=== PATIENT | male | born 1935 | race Caucasian/White ===

== ENCOUNTER 2017-05-15 10:08 | Inpatient (IN) | payer OTHER, MEDICARE ==
[2017-05-15] VITALS (9 sets, daily range): BP systolic 148–188; BP diastolic 67–86; PULSE 86–97; RESP 15–18; TEMP 97–98.2; O2SAT 93–99
[~2017-05-15] VITALS: Ht 185.4 cm; Wt 86.0 kg
[2017-05-15] MEDS ORDERED: AMLO5 PO (10:26)
[2017-05-15] MEDS ORDERED: METF1000 PO (10:26)
[2017-05-15] MEDS ORDERED: MAGN400T2 PO (10:26)
[2017-05-15] MEDS ORDERED: NOVONP2 SQ (10:26)
[2017-05-15] MEDS ORDERED: LISI20TA3 PO (10:26)
[2017-05-15] MEDS ORDERED: PRIM50TA5 PO (10:27)
[2017-05-15] MEDS ORDERED: TERA5CAP3 PO (10:27)
[2017-05-15] MEDS ORDERED: ASPI-516 PO (10:27)
[2017-05-15] MEDS ORDERED: VITA2000 PO (10:27)
[2017-05-15] MEDS ORDERED: VITA10002 PO (10:27)
[2017-05-15] MEDS ORDERED: CENTCHW4 PO (10:27)
[2017-05-15] MEDS ORDERED: GABA100C4 PO (10:27)
[2017-05-15] MEDS ORDERED: ZOCO40TA PO (10:27)
[2017-05-15] MEDS ORDERED: SODIUM CHLORIDE 0.9% FLUSH 10 ML FLUSH IVF PRN (10:30)
--- NOTE | 2017-05-15 10:34 | PD ---
HPI Chief Complaint: Neuro Symptoms/ Deficits Time Seen by Provider: 10:20 Travel History International Travel<30 days: No Contact w/Intl Traveler<30days: No Traveled to known affect area: No History of Present Illness HPI This patient woke up this morning with slurred speech. He was drooling out of the right side of his mouth. He denies confusion. He does not have muscle weakness or sensory loss. No prior history of CVA or TIA. He does take a daily baby aspirin. When he went to bed he was feeling fine. Symptoms severity is moderate. Duration is unknown as it occurred during sleep. No alleviating factors. No exacerbating factors. PFSH Past Medical History Cardiovascular Problems: Yes High Cholesterol: Yes Diabetes: Yes Patient Takes Glucophage: Yes Diminished Hearing: No Hypertension: Yes Medical other: Yes Tetanus Vaccination: > 5 Years Influenza Vaccination: Yes Past Surgical History Eye Surgery: Yes (cataracts) Other Surgery: Yes (tumors removed of mouth) Social History Alcohol Use: Yes (1 shot whiskey every day) Tobacco Use: No (quit 25 years ago) Substance Use: No Allergies-Medications (Allergen,Severity, Reaction): Coded Allergies: No Known Allergies (Verified Allergy, Unknown, 05/15/17) Reported Meds & Prescriptions Reported Meds & Active Scripts Active Reported Vitamin D3 (Cholecalciferol) 2,000 Unit Cap 2,000 Units PO DAILY Vitamin B-12 (Cyanocobalamin) 1,000 Mcg Tab 1,000 Mcg PO DAILY Centrum (Multiple Vitamins W/ Minerals) 1 Chew 1 Tab PO DAILY Aspirin 81 Mg Chew 81 Mg PO DAILY Gabapentin 100 Mg Cap 200 Mg PO HS Primidone 50 Mg Tab 50 Mg PO BID Zocor (Simvastatin) 40 Mg Tab 40 Mg PO DAILY Terazosin (Terazosin HCl) 5 Mg Cap 5 Mg PO HS Metformin (Metformin HCl) 1,000 Mg Tab 1,000 Mg PO BIDPC Norvasc (Amlodipine Besylate) 5 Mg Tab 5 Mg PO DAILY Magnesium Oxide 400 Mg Tab 400 Mg PO DAILY Novolin N Inj (Insulin Human NPH) 1,000 Unit/10 Ml Vial 20 Units SQ BID Lisinopril-Hctz 20-25 Mg Tab 1 Tab PO DAILY Review of Systems General / Constitutional: No: Fever Eyes: No: Visual changes HENT: No: Headaches Cardiovascular: No: Chest Pain or Discomfort Respiratory: No: Shortness of Breath Gastrointestinal: No: Abdominal Pain Genitourinary: No: Dysuria Musculoskeletal: No: Pain Skin: No Rash Neurologic: Positive: Slurred Speech, No: Weakness Psychiatric: No: Depression Endocrine: No: Polydipsia Hematologic/Lymphatic: No: Easy Bruising Physical Exam Narrative GENERAL: Well-nourished, well-developed patient in no apparent distress. SKIN: Focused skin assessment reveals no rash and nodules. Skin is Warm and dry. HEAD: Atraumatic. Normocephalic. EYES: Pupils equal and round. No scleral icterus. No injection or drainage. ENT: No nasal bleeding or discharge. Mucous membranes pink and moist. NECK: Trachea midline. No JVD. CARDIOVASCULAR: Regular rate and rhythm. No murmur appreciated. RESPIRATORY: No accessory muscle use. Clear to auscultation. Breath sounds equal bilaterally. GASTROINTESTINAL: Abdomen soft, non-tender, nondistended. Hepatic and splenic margins not palpable. MUSCULOSKELETAL: No obvious deformities. No clubbing. No cyanosis. No edema. NEUROLOGICAL: Awake and alert. No obvious cranial nerve deficits. Motor grossly within normal limits. Has some slurring of speech. No aphasia. He has a subtle right sided facial droop. Sensation intact PSYCHIATRIC: Appropriate mood and affect; insight and judgment normal. Data Data Last Documented VS Vital Signs Date Time Temp Pulse Resp B/P (MAP) Pulse Ox O2 Delivery O2 Flow Rate FiO2 05/15/17 12:07 98 Room Air 05/15/17 11:32 97.8 87 15 168/78 (108) Orders Orders Electrocardiogram (05/15/17 10:28) Prothrombin Time / Inr (Pt) (05/15/17 10:28) Act Partial Throm Time (Ptt) (05/15/17 10:28) Complete Blood Count With Diff (05/15/17 10:28) Basic Metabolic Panel (Bmp) (05/15/17 10:28) Ct Brain W/O Iv Contrast(Rout) (05/15/17 10:28) Ecg Monitoring (05/15/17 10:28) Iv Access Insert/Monitor (05/15/17 10:28) Oximetry (05/15/17 10:28) Blood Glucose (05/15/17 10:28) Sodium Chloride 0.9% Flush (Ns Flush) (05/15/17 10:30) Admit To Inpatient (05/15/17 ) Vital Signs (Adult) Q4H (05/15/17 11:51) Nih Stroke Scale - Nihss .On admission and discharge (05/15/17 11:51) Neuro Checks Q4H (05/15/17 11:51) Consult Pt Eval & Treat (05/15/17 11:51) Case Management Consult (05/15/17 ) Activity Bed Rest (05/15/17 11:51) Nursing Bedside Swallow Assess .ONCE (05/15/17 11:51) Scd Bilateral/Knee High ANN.QSHIFT (05/15/17 11:51) Diet Npo (05/15/17 Lunch) Hemoglobin (Hgb) A1c (05/15/17 11:51) Lipid Profile (05/16/17 06:00) Us Carotid Arteries Comp Bilat (05/15/17 ) Holter Monitor Recording (05/15/17 ) Mra Brain W/O Contrast (Cow) (05/15/17 ) Mri Brain W/O Contrast (05/15/17 ) Echo 2d Comp With Doppler (05/15/17 ) Resp Oxygen Nc Stroke (05/15/17 ) ^ Hold Medication (05/15/17 11:51) Consult Neurology (05/15/17 ) Sodium Chloride 0.9% Flush (Ns Flush) (05/15/17 21:00) Sodium Chloride 0.9% Flush (Ns Flush) (05/15/17 12:00) Sodium Chlor 0.9% 1000 Ml Inj (Ns 1000 M (05/15/17 11:51) Enalaprilat Inj (Vasotec Inj) (05/15/17 12:00) Aspirin (Aspirin) (05/16/17 09:00) Bedside Glucose ANN.CSUGAR (05/15/17 11:51) Insulin Aspart Supplemtl Scale (Novolog (05/15/17 12:00) Dextrose 50% In Jayesh (Vial) Inj (D50w (Vi (05/15/17 12:00) Glucagon Inj (Glucagon Inj) (05/15/17 12:00) Consult Rehab Medicine (05/15/17 11:51) Cryptologic Technician Operator/Analyst / Telemetry ANN.Q8H (05/15/17 11:51) Consult Stroke Navigator (05/15/17 ) Heparin Inj (Heparin Inj) (05/15/17 12:00) Inpatient Certification (05/15/17 ) (Hub Use Only)Inp Phy Cons/Ref (05/15/17 ) (Hub Use Only)Inp Phy Cons/Ref (05/15/17 ) Admit Order (Ed Use Only) (05/15/17 12:22) Labs Laboratory Tests Test 05/15/17 10:30 White Blood Count 8.4 TH/MM3 Red Blood Count 3.78 MIL/MM3 Hemoglobin 11.9 GM/DL Hematocrit 34.5 % Mean Corpuscular Volume 91.2 FL Mean Corpuscular Hemoglobin 31.5 PG Mean Corpuscular Hemoglobin Concent 34.5 % Red Cell Distribution Width 13.0 % Platelet Count 245 TH/MM3 Mean Platelet Volume 8.1 FL Neutrophils (%) (Auto) 60.0 % Lymphocytes (%) (Auto) 27.9 % Monocytes (%) (Auto) 7.9 % Eosinophils (%) (Auto) 3.6 % Basophils (%) (Auto) 0.6 % Neutrophils # (Auto) 5.0 TH/MM3 Lymphocytes # (Auto) 2.3 TH/MM3 Monocytes # (Auto) 0.7 TH/MM3 Eosinophils # (Auto) 0.3 TH/MM3 Basophils # (Auto) 0.1 TH/MM3 CBC Comment DIFF FINAL Differential Comment Prothrombin Time 10.2 SEC Prothromb Time International Ratio 1.0 RATIO Activated Partial Thromboplast Time 23.1 SEC Blood Urea Nitrogen 19 MG/DL Creatinine 1.14 MG/DL Random Glucose 181 MG/DL Calcium Level 9.1 MG/DL Sodium Level 135 MEQ/L Potassium Level 4.2 MEQ/L Chloride Level 99 MEQ/L Carbon Dioxide Level 27.1 MEQ/L Anion Gap 9 MEQ/L Estimat Glomerular Filtration Rate 62 ML/MIN MDM Medical Decision Making Medical Screen Exam Complete: Yes Emergency Medical Condition: Yes Medical Record Reviewed: Yes Differential Diagnosis Ischemic CVA, hemorrhagic CVA, TIA Narrative Course I have reviewed the patient's electronic medical record. 10:30: I evaluated the patient. I've ordered a CVA workup He does not meet stroke alert or TPA criteria, he is well out of the window for TPA 1140: Labs reviewed and essentially normal Noon: Brain CT shows small vessel ischemic change without hemorrhage 1220: I reviewed with hospitalist will admit for acute ischemic CVA workup Diagnosis Primary Impression: Neurologic deficit due to acute ischemic cerebrovascular accident (CVA) Admitting Information Admitting Physician Requests: Admit Salbador Mcgee MD May 15, 2017 10:34
[2017-05-15 11:01] LABS: BASOPHIL # 0.1 TH/MM3 (0-0.2); BASOPHIL % 0.6 % (0.0-2.0); EOSINOPHIL # 0.3 TH/MM3 (0-0.4); EOSINOPHIL % 3.6 % (0.0-4.0); HEMATOCRIT 34.5 % (39.0-51.0); HEMOGLOBIN 11.9 GM/DL (13.0-17.0); LYMPH % 27.9 % (9.0-44.0); LYMPHOCYTE # 2.3 TH/MM3 (1.0-4.8); MEAN CELL VOLUME 91.2 FL (80.0-100.0); MEAN CORPUSCULAR HEMOGLOBIN 31.5 PG (27.0-34.0); MEAN CORPUSCULAR HGB CONC 34.5 % (32.0-36.0); MEAN PLATELET VOLUME 8.1 FL (7.0-11.0); MONO % 7.9 % (0.0-8.0); MONOCYTE # 0.7 TH/MM3 (0-0.9); PLATELET COUNT 245 TH/MM3 (150-450); RED BLOOD COUNT 3.78 MIL/MM3 (4.50-5.90); WHITE BLOOD COUNT 8.4 TH/MM3 (4.0-11.0)
[2017-05-15 11:08] LABS: PROTHROMBIN TIME - PATIENT 10.2 SEC (9.8-11.6)
[2017-05-15 11:12] LABS: BICARBONATE 27.1 MEQ/L (21.0-32.0); CALCIUM 9.1 MG/DL (8.5-10.1); CREATININE 1.14 MG/DL (0.60-1.30)
--- NOTE | 2017-05-15 11:14 | RADRPT ---
EXAM DATE/TIME: 05/15/2017 10:59 [facility] COMPARISON: No previous studies available for comparison. INDICATIONS : Slurred speech and difficulty speaking since 5 am. RADIATION DOSE: 37.64 CTDIvol (mGy) MEDICAL HISTORY : Cardiovascular disease. Hypertension. Diabetes mellitus type 2. SURGICAL HISTORY : None. ENCOUNTER: Initial ACUITY: 1 day PAIN SCALE: 0/10 LOCATION: cranial TECHNIQUE: Multiple contiguous axial images were obtained of the head. Using automated exposure control and adj ustment of the mA and/or kV according to patient size, radiation dose was kept as low as reasonably a chievable to obtain optimal diagnostic quality images. DICOM format image data is available electro nically for review and comparison. FINDINGS: CEREBRUM: [id number] diffuse cerebral atrophy. The ventricles are normal for degree of atrophy. Mild per iventricular white matter hypodensities consistent with ischemic white matter demyelination. No evide nce of midline shift, mass lesion, hemorrhage or acute infarction. No extra-axial fluid collections are seen. POSTERIOR FOSSA: The cerebellum and brainstem are intact. The 4th ventricle is midline. The cerebellopontine angle i s unremarkable. EXTRACRANIAL: The visualized portion of the orbits is intact. SKULL: The calvaria is intact. No evidence of skull fracture. CONCLUSION: 1. Senescent changes with mild small vessel ischemic white matter demyelination. 2. No acute intracranial abnormality. Ben Conley MD on May 15, 2017 at 11:10 Board Certified Radiologist. This report was verified electronically.
[2017-05-15] MEDS ORDERED: SODIUM CHLORIDE 0.9% FLUSH 10 ML FLUSH IV FLUSH PRN (12:00)
[2017-05-15] MEDS ORDERED: ENALAPRILAT 1.25 MG/ML VIAL IV PUSH PRN (12:00)
[2017-05-15] MEDS ORDERED: GLUCAGON 1 MG/ML VIAL OTHER PRN (12:00)
[2017-05-15] MEDS: INSULIN ASPART SUPPLEMENTAL SCALE SQ SCH ×3 (12:00→21:42)
[2017-05-15] MEDS ORDERED: DEXTROSE 50% IN WATER 50 ML VIAL(D50) IV PUSH PRN (12:00)
[2017-05-15] MEDS: SODIUM CHLOR 0.9% 1000 ML INJ 1,000 ML IV SCH (13:27)
[2017-05-15] MEDS: HEPARIN SODIUM - SQ 10,000 UNITS/ML VIAL SQ SCH (13:27)
--- NOTE | 2017-05-15 13:53 | HHI.HP ---
HPI Service [facility] Hospitalists Primary Care Physician Robert Garcia MD Admission Diagnosis acute ischemic CVA Diagnoses: Chief Complaint: Slurred speech Travel History International Travel<30 Days: No Contact w/Intl Traveler <30 Da: No Traveled to Known Affected Are: No History of Present Illness Written by Salena Stone, acting as scribe for Dr. Amezcua on 05/15/17 at 13: 46. This is an 81yo male patient with a PMHX of hypertension, diabetes, neuropathy and dyslipidemia who presents to [facility] ED with complaints of slurred speech and drooling out the right side of his mouth. Patient reports waking up around 5am with slurred speech. He denies any weakness. He denies any fever, chills, nausea, vomiting, chest pain or shortness of breath. He denies any previous TIA/CVA. He takes a baby aspirin daily. He has one shot of whisky every afternoon. He denies any previous history of withdrawals or seizures. He reports involuntary shaking for the past year. He has an upcoming appointment with Dr. Mark. Currently, he reports a "slight" headache in the back which is not new and occurs rather frequently. He endorses intermittent diarrhea but not recently. He states his speech is improving. In the ED, CT of the head showed small vessel ischemic changes without any evidence of hemorrhage. Review of Systems Except as stated in HPI: all other systems reviewed are Neg Past Family Social History Past Medical History Hypertension DM Dyslipidemia Neuropathy Skin cancer Past Surgical History Right shoulder surgery Cataract surgery Reported Medications Vitamin D3 (Cholecalciferol) 2,000 Unit Cap 2,000 Units PO DAILY Vitamin B-12 (Cyanocobalamin) 1,000 Mcg Tab 1,000 Mcg PO DAILY Centrum (Multiple Vitamins W/ Minerals) 1 Chew 1 Tab PO DAILY Aspirin 81 Mg Chew 81 Mg PO DAILY Gabapentin 100 Mg Cap 200 Mg PO HS Primidone 50 Mg Tab 50 Mg PO BID Zocor (Simvastatin) 40 Mg Tab 40 Mg PO DAILY Terazosin (Terazosin HCl) 5 Mg Cap 5 Mg PO HS Metformin (Metformin HCl) 1,000 Mg Tab 1,000 Mg PO BIDPC Norvasc (Amlodipine Besylate) 5 Mg Tab 5 Mg PO DAILY Magnesium Oxide 400 Mg Tab 400 Mg PO DAILY Novolin N Inj (Insulin Human NPH) 1,000 Unit/10 Ml Vial 20 Units SQ BID Lisinopril-Hctz 20-25 Mg Tab 1 Tab PO DAILY Allergies: Coded Allergies: No Known Allergies (Verified Allergy, Unknown, 05/15/17) Active Ordered Medications Current Medications Medications (Trade) Dose Ordered Sig/Colton Route Start Time Stop Time Status Last Admin (NS Flush) 2 ml BID IV FLUSH 05/15/17 21:00 (NS Flush) 2 ml UNSCH PRN IV FLUSH 05/15/17 12:00 Sodium Chloride 1,000 ml @ 70 mls/hr [id number] IV 05/15/17 11:51 05/15/17 13:27 (Vasotec Inj) 1.25 mg Q4H PRN IV PUSH 05/15/17 12:00 (Aspirin) 325 mg DAILY PO 05/16/17 09:00 (NovoLOG SUPPLEMENTAL SCALE) 1 ACHS SQ 05/15/17 12:00 (D50w (Vial) Inj) 50 ml UNSCH PRN IV PUSH 05/15/17 12:00 (Glucagon Inj) 1 mg UNSCH PRN OTHER 05/15/17 12:00 (Heparin Inj) 5,000 units Q12H SQ 05/15/17 12:00 05/15/17 13:27 Family History Father, enlarged heart Mother, age 87, old age Social History He has a remote history of tobacco use having quit 25yrs ago. He drinks a shot of whiskey daily. He denies any illicit drug use. Physical Exam Vital Signs Vital Signs Date Time Temp Pulse Resp B/P (MAP) Pulse Ox O2 Delivery O2 Flow Rate FiO2 05/15/17 13:28 97.7 89 16 158/81 (106) 96 Room Air 05/15/17 12:07 98 Room Air 05/15/17 11:32 97.8 87 15 168/78 (108) 96 Room Air 05/15/17 10:29 16 97 Room Air 05/15/17 10:21 89 16 97 Room Air 05/15/17 10:10 98.2 97 18 188/86 (120) 96 Room Air Physical Exam GENERAL: This is a well-nourished, well-developed elderly male patient , in no apparent distress. Awake and alert. Bilateral upper extremity tremors L>R. SKIN: No rashes, ecchymoses or lesions. Cool and dry. HEAD: Atraumatic. Normocephalic. No temporal or scalp tenderness. EYES: Pupils equal round and reactive. Extraocular motions intact. No scleral icterus. No injection or drainage. ENT: Nose without bleeding or purulent drainage. Throat without erythema, tonsillar hypertrophy or exudate. Uvula midline. Airway patent. NECK: Trachea midline. No JVD or lymphadenopathy. Supple, nontender, no meningeal signs. CARDIOVASCULAR: Regular rate and rhythm without murmurs, gallops, or rubs. RESPIRATORY: Clear to auscultation. Breath sounds equal bilaterally. No wheezes , rales, or rhonchi. GASTROINTESTINAL: Abdomen soft, non-tender, nondistended. No hepato-splenomegaly , or palpable masses. No guarding. MUSCULOSKELETAL: Extremities without clubbing, cyanosis, or edema. No joint tenderness, effusion, or edema noted. No calf tenderness. NEUROLOGICAL: Awake and alert. Cranial nerves II through XII grossly intact. Motor and sensory grossly within normal limits. Five out of 5 muscle strength in all muscle groups. Normal speech. Laboratory Laboratory Tests Test 05/15/17 10:30 White Blood Count 8.4 Red Blood Count 3.78 Hemoglobin 11.9 Hematocrit 34.5 Mean Corpuscular Volume 91.2 Mean Corpuscular Hemoglobin 31.5 Mean Corpuscular Hemoglobin Concent 34.5 Red Cell Distribution Width 13.0 Platelet Count 245 Mean Platelet Volume 8.1 Neutrophils (%) (Auto) 60.0 Lymphocytes (%) (Auto) 27.9 Monocytes (%) (Auto) 7.9 Eosinophils (%) (Auto) 3.6 Basophils (%) (Auto) 0.6 Neutrophils # (Auto) 5.0 Lymphocytes # (Auto) 2.3 Monocytes # (Auto) 0.7 Eosinophils # (Auto) 0.3 Basophils # (Auto) 0.1 CBC Comment DIFF FINAL Differential Comment Prothrombin Time 10.2 Prothromb Time International Ratio 1.0 Activated Partial Thromboplast Time 23.1 Blood Urea Nitrogen 19 Creatinine 1.14 Random Glucose 181 Calcium Level 9.1 Sodium Level 135 Potassium Level 4.2 Chloride Level 99 Carbon Dioxide Level 27.1 Anion Gap 9 Estimat Glomerular Filtration Rate 62 Result Diagram: 05/15/17 1030 05/15/17 1030 Imaging Last Impressions Head CT 05/15/17 1028 Signed Impressions: Service Date/Time: Monday, May 15, 2017 10:59 - CONCLUSION: 1. Senescent changes with mild small vessel ischemic white matter demyelination. 2. No acute intracranial abnormality. MD Gary Nava VTE Risk Assessment Capriniram VTE Risk Assessment: Mod/High Risk (score >= 2) Caprini Risk Assessment Model Point Value = 1 Point Value = 2 Point Value = 3 Point Value = 5 Age 41-60 Minor surgery BMI > 25 kg/m2 Swollen legs Varicose veins or History of unexplained or recurrent spontaneous Oral contraceptives or hormone replacement Sepsis (< 1 month) Serious lung disease, including pneumonia (< 1 month) Abnormal pulmonary function Acute myocardial infarction Congestive heart failure (< 1 month) History of inflammatory bowel disease Medical patient at bed rest Age 61-74 Arthroscopic surgery Major open surgery (> 45 min) Laparoscopic surgery (> 45 min) Malignancy Confined to bed (> 72 hours) Immobilizing plaster cast Central venous access Age >= 75 History of VTE Family history of VTE Factor V Leiden Prothrombin [id number] Lupus anticoagulant Anticardiolipin antibodies Elevated serum homocysteine Heparin-induced thrombocytopenia Other congenital or acquired thrombophilia Stroke (< 1 month) Elective arthroplasty Hip, pelvis, or leg fracture Acute spinal cord injury (< 1 month) Prophylaxis Regimen Total Risk Factor Score Risk Level Prophylaxis Regimen 0-1 Low Early ambulation 2 Moderate Order ONE of the following: *Sequential Compression Device (SCD) *Heparin 5000 units SQ BID 3-4 Higher Order ONE of the following medications: *Heparin 5000 units SQ TID *Enoxaparin/Lovenox 40 mg SQ daily (WT < 150 kg, CrCl > 30 mL/min) *Enoxaparin/Lovenox 30 mg SQ daily (WT < 150 kg, CrCl > 10-29 mL/min) *Enoxaparin/Lovenox 30 mg SQ BID (WT < 150 kg, CrCl > 30 mL/min) AND/OR *Sequential Compression Device (SCD) 5 or more Highest Order ONE of the following medications: *Heparin 5000 units SQ TID (Preferred with Epidurals) *Enoxaparin/Lovenox 40 mg SQ daily (WT < 150 kg, CrCl > 30 mL/min) *Enoxaparin/Lovenox 30 mg SQ daily (WT < 150 kg, CrCl > 10-29 mL/min) *Enoxaparin/Lovenox 30 mg SQ BID (WT < 150 kg, CrCl > 30 mL/min) AND *Sequential Compression Device (SCD) Assessment and Plan Assessment and Plan 81yo male patient with a PMHX of hypertension, diabetes, neuropathy and dyslipidemia who presents to [facility] ED with complaints of slurred speech and drooling out the right side of his mouth. //TIA/CVA CT head shows no acute intracranial process, images reviewed by me Consult Neurology, appreciate assistance Consult stroke navigator Neuro checks q4h Consult PT/OT/ST NPO for now. Bedside swallow evaluation ordered ASA 325mg and statin daily follow blood sugars Obtain HgbA1c, lipid profile Obtain Carotid US, MRI/MRA Brain, 2D echocardiogram Holter monitor HOB flat IVF continuous cardiac monitoring Consult Rehab medicine fall and seizure precautions //Hypertension Allow permissive HTN for now Vasotec 1.25mg IV q4h prn BP > 220/120 //Diabetes Hold home Metformin for now Accucheck and ISS obtain HgbA1c //DVT prophylaxis - Heparin sq Discussed Condition With ED physician, patient This note was transcribed by jocelyn Stone. I, Dr. Bernard Amezcua personally performed the history, physical exam, and medical decision making; and confirmed the accuracy of the information in the transcribed note. Authenticated by Dr. Bernard Amezcua on 05/16/17 at 06:10. Salena Stone May 15, 2017 13:53 Bernard Amezcua MD May 16, 2017 06:11
--- NOTE | 2017-05-15 14:37 | PD.CONS ---
History of Present Illness Service Neurology Consult Requested By Medicine Reason for Consult Possible stroke Primary Care Physician Robert Garcia MD History of Present Illness History of Present Illness This is an 81 yo male admitted to the hospital after waking up around 5am with slurred speech. The patient states he was in his usual state of health yesterday, only significant neurological complaint recently has been mild and progressive tremors on intention. The patient states that he woke up this morning with slurred speech and drooling from the right side of his mouth. He denies any extremity weakness or clumsiness. Patient denies any headaches or visual disturbances. With regard to his tremors he states that this has been slowly progressive, slightly better with a shot of whiskey each day, and he denies any associated anosmia or dysgeusia. Drooling was not a problem until this morning. He has been taking low-dose aspirin daily at the request of his family practice physician, but denies any significant cardiac history or stroke/ TIA. At the time of evaluation the patient feels like his symptoms are improving and his son at the bedside corroborates the same. Past Medical History Hypertension DM Neuropathy Skin cancer Past Surgical History Right shoulder surgery Cataract surgery Reported Medications Vitamin D3 (Cholecalciferol) 2,000 Unit Cap 2,000 Units PO DAILY Vitamin B-12 (Cyanocobalamin) 1,000 Mcg Tab 1,000 Mcg PO DAILY Centrum (Multiple Vitamins W/ Minerals) 1 Chew 1 Tab PO DAILY Aspirin 81 Mg Chew 81 Mg PO DAILY Gabapentin 100 Mg Cap 200 Mg PO HS Primidone 50 Mg Tab 50 Mg PO BID Zocor (Simvastatin) 40 Mg Tab 40 Mg PO DAILY Terazosin (Terazosin HCl) 5 Mg Cap 5 Mg PO HS Metformin (Metformin HCl) 1,000 Mg Tab 1,000 Mg PO BIDPC Norvasc (Amlodipine Besylate) 5 Mg Tab 5 Mg PO DAILY Magnesium Oxide 400 Mg Tab 400 Mg PO DAILY Novolin N Inj (Insulin Human NPH) 1,000 Unit/10 Ml Vial 20 Units SQ BID Lisinopril-Hctz 20-25 Mg Tab 1 Tab PO DAILY Allergies: Coded Allergies: No Known Allergies Family History Father, enlarged heart Social History He has a remote history of tobacco use having quit 30yrs ago. He drinks a shot of whiskey daily. He denies any illicit drug use. Imaging Last Impressions Head CT 05/15/17 1028 Signed Impressions: Service Date/Time: Monday, May 15, 2017 10:59 - CONCLUSION: 1. Senescent changes with mild small vessel ischemic white matter demyelination. 2. No acute intracranial abnormality. MD Gary Nava VTE Risk Assessment (Dustin Valadez) Review of Systems Constitutional: Negative except HPI Eye: Negative Except HPI ENMT: Negative except HPI Respiratory: Negative except HPI Cardiovascular: Negative except HPI Gastrointestinal: Negative except HPI Erik/Lymph: Negative except HPI Musculoskeletal: Negative except HPI Neurologic: Negative except HPI Psychiatric: Negative except HPI All other ROS: ROS reviewed as documented in chart (Dustin Valadez) Past Family Social History Allergies: Coded Allergies: No Known Allergies (Verified Allergy, Unknown, 05/15/17) Active Ordered Medications Current Medications Medications (Trade) Dose Ordered Sig/Colton Route Start Time Stop Time Status Last Admin (NS Flush) 2 ml BID IV FLUSH 05/15/17 21:00 (NS Flush) 2 ml UNSCH PRN IV FLUSH 05/15/17 12:00 Sodium Chloride 1,000 ml @ 70 mls/hr [id number] IV 05/15/17 11:51 05/15/17 13:27 (Vasotec Inj) 1.25 mg Q4H PRN IV PUSH 05/15/17 12:00 (Aspirin) 325 mg DAILY PO 05/16/17 09:00 (NovoLOG SUPPLEMENTAL SCALE) 1 ACHS SQ 05/15/17 12:00 (D50w (Vial) Inj) 50 ml UNSCH PRN IV PUSH 05/15/17 12:00 (Glucagon Inj) 1 mg UNSCH PRN OTHER 05/15/17 12:00 (Heparin Inj) 5,000 units Q12H SQ 05/15/17 12:00 05/15/17 13:27 (Dustin Valadez) Exam I&O / VS Vital Signs Date Time Temp Pulse Resp B/P (MAP) Pulse Ox O2 Delivery O2 Flow Rate FiO2 05/15/17 13:28 97.7 89 16 158/81 (106) 96 Room Air 05/15/17 12:07 98 Room Air 05/15/17 11:32 97.8 87 15 168/78 (108) 96 Room Air 2/13/18 10:29 16 97 Room Air 05/15/17 10:21 89 16 97 Room Air 05/15/17 10:10 98.2 97 18 188/86 (120) 96 Room Air General: Alert and Oriented, No acute distress Eye: PERRL, EOMI Respiratory: Lungs CTA, Non-labored respirations, Symmetrical expansion Cardiology: Normal rate Musculoskeletal: ROM Neurologic: Alert, Oriented (To person and place not to year), Normal DTR's Psychiatric: Cooperative, Appropriate mood & affect, Normal judgement Exam Comments Mild dysarthria noted and mild decreased right nasolabial fold, bilateral fine tremors on extension of the arms, no cogwheeling, strength is full and equal throughout the extremities, sensory slightly reduced in a stocking distribution bilaterally, no drift, no clonus, visual reyna full, no ptosis or nystagmus (Dustin Valadez) Review/Management Diagnosis/Plan: (1) Tremor of both hands ICD Codes: R25.1 - Tremor, unspecified Plan: Patient was due for an outpatient workup in the next couple of days Likely essential tremor Monitor clinically (2) Diabetes mellitus ICD Codes: E11.9 - Type 2 diabetes mellitus without complications Plan: Glucose control per attending (3) Transient ischemic attack, acute ICD Codes: G45.9 - Transient cerebral ischemic attack, unspecified Plan: Patient woke up with left MCA symptoms this morning, seemed to be improving Check MRI and MR angiogram, check carotids PT/OT/HYDRAULIC DESIGN ENGINEER Echo Full dose aspirin started, will consider Aggrenox versus Plavix versus OAC (Dustin Valadez) Daily Summary d/w PA. seen and examined. agree with above (Esvin Bhagat MD) Dustin Valadez May 15, 2017 14:37 Esvin Bhagat MD May 15, 2017 21:52
--- NOTE | 2017-05-15 14:59 | RADRPT ---
EXAM DATE/TIME: 05/15/2017 13:11 [facility] COMPARISON: No previous studies available for comparison. INDICATIONS : Transient ischemic attack. MEDICAL HISTORY : Hypercholesterolemia. Hypertension. Diabetes. SURGICAL HISTORY : Right shoulder surgery. 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 ENCOUNTER: Initial ACUITY: 1 day PAIN SCORE: 3/10 LOCATION: Bilateral neck PEAK SYSTOLIC VELOCITIES (cm/sec): ICA/CCA RATIO: Right: 2.1 Left: 1.1 ICA: Right: 200 Left: 102 CCA: Right: 95 Left: 92 ECA: Right: 95 Left: 158 VERTEBRAL: Right: 48 antegrade Left: 69 antegrade Elevated flow velocities and ICA/CCA ratios have been found to correlate with increased degrees of vessel stenosis, calculated as percentage of diameter relative to a normal segment of distal ICA/CCA FINDINGS: RIGHT CAROTID: Calcified plaque involving the carotid bulb and more abundant within the proximal ICA. The calcified nature generates shadowing which limits the grayscale analysis. The ICA waveform shows minimal spectr al broadening but a brisk upstroke and antegrade diastolic flow remains. LEFT CAROTID: Calcified plaque involving the carotid bulb and more abundant within the proximal ICA. The calcified nature generates shadowing which limits the grayscale analysis. The ICA waveform shows minimal spectr al broadening but a brisk upstroke and antegrade diastolic flow remains. VERTEBRAL ARTERIES: Antegrade flow is seen in both vertebral arteries. MISCELLANEOUS: None. CONCLUSION: 1. Heavily calcified plaque involving both carotid bulbs and proximal ICAs. The calcified nature gene rates shadowing which limits the grayscale analysis. Spectral and velocity evaluation suggest less th an 50% stenosis on the left and 50-69% stenosis on the right. CTA could be considered to further eval uate if clinically warranted. 2. Antegrade flow involving both vertebral arteries. Tesfaye Donald Jr., MD on May 15, 2017 at 14:52 Board Certified Radiologist. This report was verified electronically.
--- NOTE | 2017-05-15 16:55 | RADRPT ---
EXAM DATE/TIME: 05/15/2017 16:04 [facility] COMPARISON: No previous studies available for comparison. INDICATIONS : Stroke. Slurred speech. MEDICAL HISTORY : Hypertension. Diabetes. Skin cancer. SURGICAL HISTORY : Skin cancer removal. ENCOUNTER: Subsequent ACUITY: 1 day PAIN SCORE: 0/10 LOCATION: cranial TECHNIQUE: Multiplanar, multisequence MRI of the brain was performed without contrast. FINDINGS: CEREBRUM: The ventricles are normal for age. No evidence of midline shift, mass lesion, hemorrhage or acute in farction. No extraaxial fluid collections are seen. The pituitary gland and suprasellar cistern are normal in configuration. WHITE MATTER: Scattered foci of high flair signal abnormality involving the periventricular and subcortical white m atter of both cerebral hemispheres. POSTERIOR FOSSA: The cerebellum and brainstem are intact. The 4th ventricle is midline. The cerebellopontine angle is unremarkable. The cerebellar tonsils are normal in position. DIFFUSION IMAGING: There is a tiny focus of restricted diffusion involving the periventricular white matter of the left frontal lobe. This has associated reduced signal on the ADC map. It measures less than 1 cm in size. EXTRACRANIAL: The visualized portions of the orbits and paranasal sinuses are unremarkable. CONCLUSION: 1. Tiny acute lacunar infarction involving the periventricular white matter of the left frontal lobe. 2. Extensive chronic small vessel ischemic change. Tesfaye Donald Jr., MD on May 15, 2017 at 16:50 Board Certified Radiologist. This report was verified electronically.
--- NOTE | 2017-05-15 17:15 | RADRPT ---
EXAM DATE/TIME: 05/15/2017 16:04 [facility] COMPARISON: No previous studies available for comparison. INDICATIONS : Stroke. Slurred speech. MEDICAL HISTORY : Hypertension. Diabetes. Skin cancer. SURGICAL HISTORY : Skin cancer removed. ENCOUNTER: Subsequent ACUITY: 1 day PAIN SCORE: 0/10 LOCATION: cranial Please note a normal MRA of the brain does not entirely exclude the possibility of a small aneurysm, nor the possibility of distal intracranial vessel disease. TECHNIQUE: 3D time of flight MRA was performed. Source images, multiplanar STS MIP, and 3D volume MIP reconstru ctions were reviewed. FINDINGS: There is excellent visualization of the major intracranial arteries out to the second-order branch ve ssels. The questionable short segment dissection or mural ulceration identified in the distal left in ternal carotid artery just proximal to the intracavernous portion. 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 Mynor th anterior cerebral arteries are fed from the widely patent left A1 segment. 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 Patient is left vertebral dominant with a very diminutive right vertebral CONCLUSION: 1. Questionable short segment dissection/mural ulceration in the left internal carotid artery just pr oximal to the [place] portion of the same. Small, 2 mm aneurysm projecting medially off the supraclino id portion of the same internal carotid artery. CTA of the cervical vessels is recommended for furthe r characterization. 2. Patient is left vertebral dominant with a diminutive but patent distal right vertebral. 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 Maurice Trevino MD on May 15, 2017 at 17:04 Board Certified Radiologist. This report was verified electronically.
[2017-05-15 17:55] LABS: HEMOGLOBIN A1C 7.5 % (4.3-6.0)
--- NOTE | 2017-05-15 18:33 | EKG ---
Date Performed: 05/15/2017 Time Performed: 10:44:57 PTAGE: 81 years EKG: Sinus rhythm NORMAL ECG NO PREVIOUS TRACING DOCTOR: Donnell Dacosta Interpretating Date/Time 05/15/2017 18:29:37
[2017-05-15] MEDS ORDERED: IOHEXOL 350 MG/ML 10 ML VIAL (for RAD DIAG) IVCONTRAST ONE (18:45)
--- NOTE | 2017-05-15 19:45 | RADRPT ---
EXAM DATE/TIME: 05/15/2017 18:23 [facility] COMPARISON: No previous studies available for comparison. INDICATIONS : Post stroke alert. IV CONTRAST: 95 cc Omnipaque 350 (iohexol) IV ; Cumulative dose for multiple exams. RADIATION DOSE: 17.17 CTDIvol (mGy) ; Combined studies MEDICAL HISTORY : Cardiovascular disease. Hypertension. Diabetes mellitus type 1. SURGICAL HISTORY : None. ENCOUNTER: Initial ACUITY: 1 day PAIN SCALE: 0/10 LOCATION: cranial Elevated flow velocities and ICA/CCA ratios have been found to correlate with increased degrees of vessel stenosis, calculated as percentage of diameter relative to a normal segment of distal ICA/CCA. TECHNIQUE: Volumetric scanning was performed using a multirow detector CT scanner. The data was post processed with a variety of visualization algorithms including full-volume maximum intensity projection, multip lanar sliding thin-slab reformation, curved-planar reformation, and surface-rendering techniques. Us ing automated exposure control and adjustment of the mA and/or kV according to patient size, radiatio n dose was kept as low as reasonably achievable to obtain optimal diagnostic quality images. DICOM f ormat image data is available electronically for review and comparison. FINDINGS: Great vessel origins are patent. Both common carotid arteries demonstrate moderate atherosclerotic pl aque without stenosis. There is moderate plaque around the proximal left internal carotid artery without hemodynamically sig nificant stenosis. There is very dense plaque around the proximal right internal carotid artery with suspected approxima tely 70% stenosis. CONCLUSION: 1. Very dense plaque at the proximal right internal carotid artery making evaluation difficult but st enosis appears to be in the 50-70% range on the right. 2. Mild stenosis proximal left internal carotid artery. 3. Dominant left vertebral artery. Hima Campbell MD on May 15, 2017 at 19:37 Board Certified Radiologist. This report was verified electronically.
--- NOTE | 2017-05-15 19:48 | RADRPT ---
EXAM DATE/TIME: 05/15/2017 18:23 [facility] COMPARISON: No previous studies available for comparison. INDICATIONS : Post stroke alert. IV CONTRAST: 95 cc Omnipaque 350 (iohexol) IV ; Cumulative dose for multiple exams. RADIATION DOSE: 17.17 CTDIvol (mGy) ; Combined studies MEDICAL HISTORY : Cardiovascular disease. Hypertension. Diabetes mellitus type 1. SURGICAL HISTORY : None. ENCOUNTER: Initial ACUITY: 1 day PAIN SCALE: 0/10 LOCATION: cranial TECHNIQUE: Volumetric scanning was performed using a multi-row detector CT scanner. The data was post processed with a variety of visualization algorithms including full volume maximum intensity projection, multi -planar sliding thin slab reformation, curved planar reformation, and surface rendering techniques. Using automated exposure control and adjustment of the mA and/or kV according to patient size, radiat ion dose was kept as low as reasonably achievable to obtain optimal diagnostic quality images. DICO M format image data is available electronically for review and comparison. FINDINGS: There is excellent visualization of the major intracranial arteries out to the second-order branch ve ssels. There is no evidence for aneurysm, vessel truncation or stenosis, and no evidence for vascula r malformation. CONCLUSION: 1. No significant stenocclusive disease identified in the intracranial arterial vasculature. Hima Campbell MD on May 15, 2017 at 19:42 Board Certified Radiologist. This report was verified electronically.
[2017-05-15] MEDS: SODIUM CHLORIDE 0.9% FLUSH 10 ML FLUSH IV FLUSH SCH (21:28)
[2017-05-16] MEDS: HEPARIN SODIUM - SQ 10,000 UNITS/ML VIAL SQ SCH (00:05)
[2017-05-16 01:00] VITALS: BP 173/82; PULSE 67; RESP 20; TEMP 97.1; O2SAT 92
[2017-05-16 04:00] VITALS: BP 153/74; PULSE 77; RESP 18; TEMP 97; O2SAT 97
[2017-05-16] MEDS: SODIUM CHLOR 0.9% 1000 ML INJ 1,000 ML IV SCH (05:19)
[2017-05-16 08:00] VITALS: BP 173/89; PULSE 78; RESP 16; TEMP 97.5; O2SAT 95
[2017-05-16] MEDS: INSULIN ASPART SUPPLEMENTAL SCALE SQ SCH (08:00)
--- NOTE | 2017-05-16 08:19 | HHI.PR ---
Review/Management Diagnosis/Plan: (1) Acute ischemic left MCA stroke ICD Codes: I63.512 - Cerebral infarction due to unspecified occlusion or stenosis of left middle cerebral artery Status: Acute Plan: small left frontal subcortical infarct cta's reviewed. left ica <50%. rt ica 50-70%- but not culprit artery brain nml hba1c 7.5 recs start plavix, aspirin. stop aspirin in 6-8 weeks needs event monitor/loop outpatient f/u echo f/u lipid panel dm/bp control pt. d/c planning from neuro (2) Tremor of both hands ICD Codes: R25.1 - Tremor, unspecified Status: Chronic Plan: Patient was due for an outpatient workup in the next couple of days Likely essential tremor Monitor clinically (3) Diabetes mellitus ICD Codes: E11.9 - Type 2 diabetes mellitus without complications Status: Chronic Plan: Glucose control per attending (4) Carotid stenosis, right ICD Codes: I65.21 - Occlusion and stenosis of right carotid artery Subjective Subjective Comments No acute events reported No headache No chest pain No dyspnea Active Medications Current Medications Medications (Trade) Dose Ordered Sig/Colton Route Start Time Stop Time Status Last Admin (NS Flush) 2 ml BID IV FLUSH 05/15/17 21:00 05/15/17 21:28 (NS Flush) 2 ml UNSCH PRN IV FLUSH 05/15/17 12:00 Sodium Chloride 1,000 ml @ 70 mls/hr [id number] IV 05/15/17 11:51 05/16/17 05:19 (Vasotec Inj) 1.25 mg Q4H PRN IV PUSH 05/15/17 12:00 (Aspirin) 325 mg DAILY PO 05/16/17 09:00 (NovoLOG SUPPLEMENTAL SCALE) 1 ACHS SQ 05/15/17 12:00 05/15/17 21:42 (D50w (Vial) Inj) 50 ml UNSCH PRN IV PUSH 05/15/17 12:00 (Glucagon Inj) 1 mg UNSCH PRN OTHER 05/15/17 12:00 (Heparin Inj) 5,000 units Q12H SQ 05/15/17 12:00 05/16/17 00:05 Allergies Allergies Coded Allergies No Known Allergies (Verified Allergy, Unknown, 05/15/17) Review of Systems Constitutional: Negative except HPI Eye: Negative Except HPI ENMT: Negative except HPI Respiratory: Negative except HPI Cardiovascular: Negative except HPI Gastrointestinal: Negative except HPI Erik/Lymph: Negative except HPI Musculoskeletal: Negative except HPI Neurologic: Negative except HPI Psychiatric: Negative except HPI All other ROS: ROS reviewed as documented in chart Exam I&O / VS Vital Signs Date Time Temp Pulse Resp B/P (MAP) Pulse Ox O2 Delivery O2 Flow Rate FiO2 05/16/17 04:00 97.0 77 18 153/74 (100) 97 05/16/17 01:00 97.1 67 20 173/82 (112) 92 05/15/17 22:52 97.0 86 18 151/67 (95) 93 05/15/17 21:26 86 05/15/17 18:10 97.9 83 15 148/83 (104) 99 05/15/17 17:00 97.9 90 16 148/83 (104) 99 Room Air 05/15/17 15:37 97.8 91 16 152/81 (104) 97 Room Air 05/15/17 13:28 97.7 89 16 158/81 (106) 96 Room Air 05/15/17 12:07 98 Room Air 05/15/17 11:32 97.8 87 15 168/78 (108) 96 Room Air 05/15/17 10:29 16 97 Room Air 05/15/17 10:21 89 16 97 Room Air 05/15/17 10:10 98.2 97 18 188/86 (120) 96 Room Air General: Alert and Oriented, No acute distress Eye: PERRL, EOMI Respiratory: Lungs CTA, Non-labored respirations, Symmetrical expansion Cardiology: Normal rate Musculoskeletal: ROM Neurologic: Alert, Oriented (To person and place not to year), Normal sensory, Normal motor, No focal defects, CN II-XII intact, Normal DTR's Psychiatric: Cooperative, Appropriate mood & affect, Normal judgement Objective Micro and Labs Laboratory Tests Test 05/15/17 10:30 White Blood Count 8.4 Red Blood Count 3.78 Hemoglobin 11.9 Hematocrit 34.5 Mean Corpuscular Volume 91.2 Mean Corpuscular Hemoglobin 31.5 Mean Corpuscular Hemoglobin Concent 34.5 Red Cell Distribution Width 13.0 Platelet Count 245 Mean Platelet Volume 8.1 Neutrophils (%) (Auto) 60.0 Lymphocytes (%) (Auto) 27.9 Monocytes (%) (Auto) 7.9 Eosinophils (%) (Auto) 3.6 Basophils (%) (Auto) 0.6 Neutrophils # (Auto) 5.0 Lymphocytes # (Auto) 2.3 Monocytes # (Auto) 0.7 Eosinophils # (Auto) 0.3 Basophils # (Auto) 0.1 CBC Comment DIFF FINAL Differential Comment Prothrombin Time 10.2 Prothromb Time International Ratio 1.0 Activated Partial Thromboplast Time 23.1 Blood Urea Nitrogen 19 Creatinine 1.14 Random Glucose 181 Calcium Level 9.1 Sodium Level 135 Potassium Level 4.2 Chloride Level 99 Carbon Dioxide Level 27.1 Anion Gap 9 Estimat Glomerular Filtration Rate 62 Hemoglobin A1c 7.5 Esvin Bhagat MD May 16, 2017 08:19
[2017-05-16] MEDS ORDERED: ASPIRIN 325 MG TAB PO SCH (09:00)
[2017-05-16] MEDS: SODIUM CHLORIDE 0.9% FLUSH 10 ML FLUSH IV FLUSH SCH (09:00)
[2017-05-16] MEDS ORDERED: CLOPIDOGREL 75 MG TAB PO SCH (10:00)
[2017-05-16] MEDS ORDERED: ASA325 PO (10:13)
[2017-05-16] MEDS ORDERED: PLAV75TA29 PO (10:13)
--- NOTE | 2017-05-16 10:13 | HHI.DS ---
Discharge Summary Admission Date May 15, 2017 at 12:23 Discharge Date: May 16, 2017 Admitting Diagnosis acute ischemic CVA (1) Acute ischemic left MCA stroke ICD Code: I63.512 - Cerebral infarction due to unspecified occlusion or stenosis of left middle cerebral artery Status: Acute (2) Transient ischemic attack, acute ICD Code: G45.9 - Transient cerebral ischemic attack, unspecified (3) Diabetes mellitus ICD Code: E11.9 - Type 2 diabetes mellitus without complications Status: Chronic (4) Carotid stenosis, right ICD Code: I65.21 - Occlusion and stenosis of right carotid artery Procedures No procedures Brief History - From Admission This is an 81yo male patient with a PMHX of hypertension, diabetes, neuropathy and dyslipidemia who presents to [facility] ED with complaints of slurred speech and drooling out the right side of his mouth. Patient reports waking up around 5am with slurred speech. He denies any weakness. He denies any fever, chills, nausea, vomiting, chest pain or shortness of breath. He denies any previous TIA/CVA. He takes a baby aspirin daily. He has one shot of whisky every afternoon. He denies any previous history of withdrawals or seizures. He reports involuntary shaking for the past year. He has an upcoming appointment with Dr. Mark. Currently, he reports a "slight" headache in the back which is not new and occurs rather frequently. He endorses intermittent diarrhea but not recently. He states his speech is improving. In the ED, CT of the head showed small vessel ischemic changes without any evidence of hemorrhage. CBC/BMP: 05/15/17 1030 05/15/17 1030 Significant Findings Laboratory Tests Test 05/15/17 10:30 05/16/17 08:44 Red Blood Count 3.78 MIL/MM3 (4.50-5.90) Hemoglobin 11.9 GM/DL (13.0-17.0) Hematocrit 34.5 % (39.0-51.0) Activated Partial Thromboplast Time 23.1 SEC (24.3-30.1) Blood Urea Nitrogen 19 MG/DL (7-18) Random Glucose 181 MG/DL (74-106) Sodium Level 135 MEQ/L (136-145) Estimat Glomerular Filtration Rate 62 ML/MIN (>89) Hemoglobin A1c 7.5 % (4.3-6.0) Imaging Last Impressions Head CT 05/15/17 1028 Signed Impressions: Service Date/Time: Monday, May 15, 2017 10:59 - CONCLUSION: 1. Senescent changes with mild small vessel ischemic white matter demyelination. 2. No acute intracranial abnormality. Ben Conley MD Neck CTA 05/15/17 0000 Signed Impressions: Service Date/Time: Monday, May 15, 2017 18:23 - CONCLUSION: 1. Very dense plaque at the proximal right internal carotid artery making evaluation difficult but stenosis appears to be in the 50-70%% range on the right. 2. Mild stenosis proximal left internal carotid artery. 3. Dominant left vertebral artery. Hima Campbell MD Head Magnetic Resonance Angiography 05/15/17 0000 Signed Impressions: Service Date/Time: Monday, May 15, 2017 16:04 - CONCLUSION: 1. Questionable short segment dissection/mural ulceration in the left internal carotid artery just proximal to the [place] portion of the same. 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 CTA of the cervical vessels is recommended for further characterization. 2. Patient is left vertebral dominant with a diminutive but patent distal right vertebral. 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 Maurice Trevino MD Head CTA 05/15/17 0000 Signed Impressions: Service Date/Time: Monday, May 15, 2017 18:23 - CONCLUSION: 1. No significant stenocclusive disease identified in the intracranial arterial vasculature. Hima Campbell MD Carotid Artery Ultrasound 05/15/17 0000 Signed Impressions: Service Date/Time: Monday, May 15, 2017 13:11 - CONCLUSION: 1. Heavily calcified plaque involving both carotid bulbs and proximal ICAs. The calcified nature generates shadowing which limits the grayscale analysis. Spectral and velocity evaluation suggest less than 50%% stenosis on the left and 50-69%% stenosis on the right. CTA could be considered to further evaluate if clinically warranted. 2. Antegrade flow involving both vertebral arteries. Tesfaye Donald Jr., MD Brain MRI 05/15/17 0000 Signed Impressions: Service Date/Time: Monday, May 15, 2017 16:04 - CONCLUSION: 1. Tiny acute lacunar infarction involving the periventricular white matter of the left frontal lobe. 2. Extensive chronic small vessel ischemic change. Tesfaye Donald Jr., MD PE at Discharge GENERAL: This is a well-nourished, well-developed elderly male patient , in no apparent distress. Awake and alert. Bilateral upper extremity tremors L>R. CARDIOVASCULAR: Regular rate and rhythm without murmurs, gallops, or rubs. RESPIRATORY: Clear to auscultation. Breath sounds equal bilaterally. No wheezes , rales, or rhonchi. GASTROINTESTINAL: Abdomen soft, non-tender, nondistended. No hepato-splenomegaly , or palpable masses. No guarding. MUSCULOSKELETAL: Extremities without clubbing, cyanosis, or edema. No joint tenderness, effusion, or edema noted. No calf tenderness. NEUROLOGICAL: Awake and alert. Cranial nerves II through XII grossly intact. Motor and sensory grossly within normal limits. Five out of 5 muscle strength in all muscle groups. Normal speech. Pt update on day of discharge No events overnight To have Holter monitor as outpatient Clear by neurology for discharge Hospital Course 81yo male patient with a PMHX of hypertension, diabetes, neuropathy and dyslipidemia who presents to [facility] ED with complaints of slurred speech and drooling out the right side of his mouth. Patient with TIA/CVA CT head shows no acute intracranial process Consult Neurology, appreciate assistance Consult PT/OT/ST. PT recommends home with no PT ASA 325mg for 4-6 weeks per neurology also continue Plavix. And continue statin daily Obtain HgbA1c, continue medications. Lipid profile reviewed, continue statin Obtain Carotid US, MRI/MRA Brain, reviewed with small strokes 2D echocardiogram normal ejection fraction Holter monitor to have his outpatient Cleared by neurology for discharge to follow-up as outpatient with PCP and consultants. Patient to have Holter monitor Pt Condition on Discharge: Stable Discharge Disposition: Discharge Home Discharge Time: > 30 minutes Discharge Instructions DIET: Follow Instructions for: Heart Healthy Diet, Diabetic Diet Activities you can perform: Regular-No Restrictions Follow up Referrals: Appointment for Follow Up Cardiology - 1 Week Cardiology Neurology - 1 Week with Esvin Bhagat MD PCP Follow-up - 2-3 Days PCP Follow-up New Orders: HOLTER MONITOR - Today New Medications: Aspirin (Px Aspirin) 325 Mg Tab 325 MG PO DAILY for Blood Clot Prevention, #45 TAB Clopidogrel (Plavix) 75 Mg Tab 75 MG PO DAILY for Blood Clot Prevention, #60 TAB Continued Medications: Amlodipine (Norvasc) 5 Mg Tab 5 MG PO DAILY for Blood Pressure Management, #30 TAB 0 Refills Cholecalciferol (Vitamin D3) 2,000 Unit Cap 2000 UNITS PO DAILY for Nutritional Supplement, #1 BOTTLE 0 Refills Cyanocobalamin (Vitamin B-12) 1,000 Mcg Tab 1000 MCG PO DAILY for Nutritional Supplement, #1 BOTTLE 0 Refills Gabapentin (Gabapentin) 100 Mg Cap 200 MG PO HS, #30 CAP 0 Refills Insulin Human NPH Inj (Novolin N Inj) 1,000 Unit/10 Ml Vial 20 UNITS SQ BID for Blood Sugar Management, #10 ML 0 Refills Lisinopril-Hctz (Lisinopril-Hctz) 20-25 Mg Tab 1 TAB PO DAILY for Blood Pressure Management, #30 TAB 0 Refills Magnesium Oxide (Magnesium Oxide) 400 Mg Tab 400 MG PO DAILY for Nutritional Supplement, TAB 0 Refills Metformin (Metformin) 1,000 Mg Tab 1000 MG PO BIDPC for Blood Sugar Management, #60 TAB 0 Refills Multiple Vitamins W/ Minerals (Centrum) 1 Chew 1 TAB PO DAILY for Nutritional Supplement, TAB 0 Refills Primidone (Primidone) 50 Mg Tab 50 MG PO BID for Control Seizures, #60 TAB 0 Refills Simvastatin (Zocor) 40 Mg Tab 40 MG PO DAILY for Cholesterol Management, #30 TAB 0 Refills Terazosin (Terazosin) 5 Mg Cap 5 MG PO HS, #30 CAP 0 Refills Discontinued Medications: Aspirin (Aspirin) 81 Mg Chew 81 MG PO DAILY, TAB 0 Refills Linda Sanchez MD May 16, 2017 10:13
[2017-05-16 10:48] LABS: CHOLESTEROL/ HDL RATIO 3.03 RATIO; HDL CHOLESTEROL 50.4 MG/DL (40.0-60.0)
--- NOTE | 2017-05-17 14:48 | HM ---
Date Performed: 05/16/2017 Time Performed: 11:18:00 HOOKUP DATE: 05/16/17 11:18:00 AM Wed ANALYSIS START TIME: 05/16/2017 11:23:00 AM ANALYSIS END TIME: 05/17/2017 5:16:47 AM PATIENT AGE: 81 PATIENT HEIGHT PATIENT WEIGHT DRUG LIST PATIENT DIAGNOSIS: NEURO TEST NARRATIVE: The patient's average heart rate was 79 BPM. Heart rates greater than 120 B PM were noted < 1% of the time. No episodes of bradycardia were noted. No pauses exceeding 2.0 s econds were noted. 87 ventricular ectopics, which represented < 1% of the total beat count, were noted. The highest ventricular ectopic frequency occurred from 03:00 PM to 04:00 PM Wed. During thi s time 22 VE(s) occurred. Ventricular ectopics were observed as 87 isolated beat(s) only. No couple ts or runs were noted. Some of the ventricular beats occurred in bigeminal cycles. 2 supraventri cular ectopics, which represented < 1% of the total beat count, were noted. The highest supraventric ular ectopic frequency occurred from 02:00 PM to 03:00 PM Wed. During this time 2 SVE(s) occurred. Multiple episodes of ST depression (defined as -1.0 mm or more) were noted in channel 1. The max imum depression of -1.8 mm occurred at 11:45:25 AM Wed. No episodes of ST depression (defined as -1. 0 mm or more) were noted in channel 2. No episodes of ST depression (defined as -1.0 mm or more) wer e noted in channel 3. NO SYMPTOMS RECORDED IN THE PATIENT DIARY. TEST INTERPRETATION: Agree with interpretation as dictated above. Signed by : Benjy Brady
== END 2017-05-16 13:24 | disposition home or self-care (01) | DRG 66 ==
LOC: NEPC 10:08 → NEDA 12:23 → N05B 18:41
PROVIDERS: ADMIT Hospitalist; ATTEND Hospitalist
DX: I63.512 Cerebral infarction due to unspecified occlusion or stenosis of left middle cerebral artery (principal); I65.21 Occlusion and stenosis of right carotid artery; G62.9 Polyneuropathy, unspecified; E11.40 Type 2 diabetes mellitus with diabetic neuropathy, unspecified; E78.5 Hyperlipidemia, unspecified; I10 Essential (primary) hypertension; G25.0 Essential tremor; R29.701 NIHSS score 1; R29.810 Facial weakness; R47.81 Slurred speech; Z79.4 Long term (current) use of insulin; Z79.82 Long term (current) use of aspirin; Z85.828 Personal history of other malignant neoplasm of skin; Z87.891 Personal history of nicotine dependence
CPT/HCPCS: 70450; 70496; 70498; 70544; 70551; 80048; 80061; 82948; 83036; 85025; 85610; 85730; 93005; 93225; 93226; 93306; 93880; 99285; J1644; J1815; J7030; Q9967